=== PATIENT | female | born 1955 | race African-American/Black ===

== ENCOUNTER 2018-01-25 12:22 | Emergency (ER) | payer MEDICARE, OTHER ==
[~2018-01-25] VITALS: Ht 167.6 cm; Wt 79.4 kg
[2018-01-25 12:25] VITALS: BP 119/48
--- NOTE | 2018-01-25 12:36 | Emergency Room Report ---
History of Present Illness General Chief Complaint: Pain Source: Patient Present Illness HPI 62-year-old female presents with left buttock pain radiating down her left leg that started yesterday when she sat on the toilet, she reports no falls or other trauma. She reports it hurts to bear weight, and she is having trouble eating on her house. She denies leg swelling, fevers, cough, short of breath, syncope, any other complaints. She is tried tramadol without much relief of her pain. Allergies: Coded Allergies: BACLOFEN (Unverified Allergy, Unknown, 01/25/18) Patient History Past Medical History: see triage record Last Menstrual Period: N/A Reviewed Nursing Documentation: PMH: Agreed; PSxH: Agreed Nursing Documentation-PMH Hx Hypertension: Yes Hx Pacemaker: No - RENAL FAILURE, BLOOD CLOTS History Of Psychiatric Problem: Yes - PSYCH Review of Systems All Other Systems: negative except mentioned in HPI Physical Exam Vital Signs Date Time Temp Pulse Resp B/P (MAP) Pulse Ox O2 Delivery O2 Flow Rate FiO2 01/25/18 12:17 98.3 85 16 121/72 98 Room Air 98.2 Sp02 EP Interpretation: reviewed, normal General Appearance: no apparent distress, alert, non-toxic Head: normocephalic Eyes: bilateral eye normal inspection, bilateral eye PERRL, bilateral eye EOMI ENT: normal ENT inspection, hearing grossly normal, normal pharynx, no angioedema, normal voice, moist mucus membranes Neck: normal inspection, full range of motion, supple, supple/symm/no masses Respiratory: chest non-tender, lungs clear, normal breath sounds, chest symmetrical, palpation of chest normal Cardiovascular #1: normal peripheral pulses, regular rate, rhythm Cardiovascular #2: 2+ radial (R), 2+ radial (L), 2+ dorsalis pedis (R), 2+ dorsalis pedis (L) Gastrointestinal: normal inspection, non tender, soft, no mass, no guarding, no rebound Rectal: deferred Genitourinary: normal inspection, no CVA tenderness Musculoskeletal: back normal, gait/station normal, non-tender, no calf tenderness, decreased range of motion - L hip, 2/2 pain limitation, Christ's Sign negative Neurologic: alert, responsive, piccolo mechanic III-XII nml as tested, motor strength/tone normal, sensory intact, speech normal Psychiatric: judgement/insight normal, memory normal, mood/affect normal, no suicidal/homicidal ideation Skin: normal color, no rash, warm/dry, normal turgor Lymphatic: no adenopathy Medical Decision Making Diagnostic Impression: Primary Impression: Pain ER Course Patient with normal exam but reports too much pain to ambulate, with no traumatic history. Given morphine, flexeril, toradol. Still says she can't walk , despite normal xr, no history of trauma, normal DVT study, says she lives upstairs alone and can't walk. Will admit for placement to care facility/NH. Other X-Ray Diagnostic Results Other X-Ray Diagnostic Results : X-Ray ordered: L hip # of Views/Limited Vs Complete: 2 View Indication: Pain EP Interpretation: Yes Interpretation: no dislocation, no soft tissue swelling, no fractures, nonspecific bowel gas, no sbo Impression: No acute disease Electronically Signed by: Talisha Garcia MD CT/MRI/US Diagnostic Results CT/MRI/US Diagnostic Results : Imaging Test Ordered: LLE venous duplex Last Vital Signs Date Time Temp Pulse Resp B/P (MAP) Pulse Ox O2 Delivery O2 Flow Rate FiO2 01/25/18 12:25 98.2 87 19 119/48 97 Room Air 98.2 Disposition: ADMITTED INPATIENT Condition: Stable TALISHA GARCIA M.D Jan 25, 2018 12:36
[2018-01-25] MEDS ORDERED: Ketorolac 30mg Inj IV ONE (12:45)
[2018-01-25] MEDS ORDERED: Cyclobenzaprine 10mg Tab ORAL ONE (12:45)
[2018-01-25] MEDS ORDERED: Morphine Sulfate 4mg/ml Inj (IV USE ONLY) IVP ONE (12:45)
[2018-01-25 13:30] LABS: BASOPHILS % (AUTO) 0.8 % (0.0-2.0); EOSINOPHILS % (AUTO) 0.7 % (0.0-3.0); HEMOGLOBIN 13.2 G/DL (12.0-16.0); LYMPHOCYTES % (AUTO) 21.7 % (20.0-45.0); MEAN CORPUSCULAR VOLUME 85 FL (80-99); MONOCYTES % (AUTO) 9.8 % (1.0-10.0); NEUTROPHILS % (AUTO) 66.9 % (45.0-75.0); PLATELET COUNT 231 K/UL (150-450); RED CELL DISTRIBUTION WIDTH 13.3 % (11.6-14.8); WHITE BLOOD COUNT 9.8 K/UL (4.8-10.8)
[2018-01-25 13:31] LABS: APPEARANCE,URINE SLIGHTLY CLOUDY; BILIRUBIN, URINE NEGATIVE (NEGATIVE); COLOR,URINE PALE YELLOW; GLUCOSE, URINE (UA) NEGATIVE (NEGATIVE); KETONES,URINE NEGATIVE (NEGATIVE); LEUKOCYTE ESTERASE ,URINE 2+ (NEGATIVE); NITRITE,URINE POSITIVE (NEGATIVE); PH,URINE 6 (4.5-8.0); PROTEIN,URINE 1+ (NEGATIVE); UROBILINOGEN,URINE NORMAL MG/DL (0.0-1.0)
[2018-01-25 13:52] LABS: ANION GAP 9 mmol/L (5-15); BLOOD UREA NITROGEN 12 mg/dL (7-18); CALCIUM 9.6 MG/DL (8.5-10.1); CARBON DIOXIDE 28 MMOL/L (21-32); CHLORIDE 107 MMOL/L (98-107); CREATININE 0.7 MG/DL (0.55-1.30); POTASSIUM 3.3 MMOL/L (3.5-5.1); SODIUM 144 MMOL/L (136-145)
--- NOTE | 2018-01-25 14:27 | Diagnostic Imaging Report ---
Indication: Left lower extremity pain and swelling. Technique: Duplex Doppler imaging performed from the left common femoral vein to the popliteal vein. FINDINGS: Normal compressibility demonstrated from the left common femoral vein to the popliteal vein. Respiratory phasicity and good augmentation demonstrated on waveform analysis. There is no evidence of thrombosis. IMPRESSION: No evidence of deep venous thrombosis within the left lower extremity.
[2018-01-25 14:30] VITALS: BP 114/83
--- NOTE | 2018-01-25 14:34 | Diagnostic Imaging Report ---
Indications: hip pain Findings: Two views of the left hip were obtained. No acute fracture is demonstrated. Alignment of the hip is within normal limits. Soft tissues are unremarkable. Impression: Negative for acute injury. The study is limited due to portable technique
[2018-01-25] MEDS ORDERED: cefTRIAXone 1 GM in NS 55 ML IVPB ONE (15:00)
[2018-01-25 16:40] VITALS: BP 141/81
[2018-01-25 18:10] VITALS: BP 138/78
[2018-01-25 21:15] VITALS: BP 141/81
== END 2018-01-25 18:10 | disposition other institution (70) ==
LOC: EDBD 12:22 → EMR 12:57 → EDBEDREQ 12:58 → EMR 18:10
DX: M25.552 Pain in left hip (principal); M79.18 Myalgia, other site; I10 Essential (primary) hypertension
CPT/HCPCS: 36415; 73502; 80048; 81003; 85025; 87086; 87181; 93971; 96365; 96375; 99285; J0696; J1885; J2270; J2405

== ENCOUNTER 2018-03-21 09:11 | Emergency (ER) | payer MEDICARE ==
[~2018-03-21] VITALS: Ht 170.2 cm; Wt 102.1 kg
[2018-03-21 09:13] VITALS: BP 150/87
[2018-03-21] MEDS ORDERED: Morphine Sulfate 4mg/ml Inj (IV/IM USE ONLY) IVP ONE (09:30)
[2018-03-21] MEDS ORDERED: Ketorolac 30mg Inj IV ONE (09:30)
[2018-03-21] MEDS ORDERED: Methocarbamol 750mg tab ORAL ONE (09:30)
--- NOTE | 2018-03-21 09:43 | Emergency Room Report ---
History of Present Illness General Chief Complaint: Pain Source: Patient Present Illness HPI 62-year-old female presents ED for evaluation. Patient brought in by EMS complaining of back pain 2 days. Sharp, 10 out of 10, radiating down the right leg. Unable to bear weight. Denies any recent trauma or injury. History of sciatica. States she was here in January for similar pain and was subsequently admitted for pain control. States that since her discharge she had an MRI which confirmed sciatica area and is scheduled for physical therapy but has not yet received physical therapy yet. Denies bowel or bladder incontinence. No other aggravating relieving factors. Denies any other associated symptoms Allergies: Coded Allergies: BACLOFEN (Unverified Allergy, Unknown, 01/25/18) Patient History Past Medical History: HTN Past Surgical History: none Pertinent Family History: none Social History: Denies: smoking, alcohol use, drug use Now: No Immunizations: UTD Reviewed Nursing Documentation: PMH: Agreed; PSxH: Agreed Nursing Documentation-PMH Past Medical History: No History, Except For Hx Hypertension: Yes Hx Pacemaker: No - RENAL FAILURE, BLOOD CLOTS Review of Systems All Other Systems: negative except mentioned in HPI Physical Exam Vital Signs Date Time Temp Pulse Resp B/P (MAP) Pulse Ox O2 Delivery O2 Flow Rate FiO2 03/21/18 09:06 98.4 87 18 129/74 99 Room Air Sp02 EP Interpretation: reviewed, normal General Appearance: no apparent distress, alert, GCS 15, non-toxic Head: normocephalic Eyes: bilateral eye normal inspection, bilateral eye PERRL ENT: normal ENT inspection Neck: normal inspection Respiratory: normal inspection Cardiovascular #1: normal inspection Gastrointestinal: normal bowel sounds, non tender, soft, non-distended, no guarding, no rebound Rectal: deferred Genitourinary: no CVA tenderness, no vertebral tenderness Musculoskeletal: tender - paraspinal lumbar tenderness Neurologic: alert, oriented x3, responsive, motor strength/tone normal, sensory intact, speech normal Psychiatric: normal inspection Skin: normal inspection Lymphatic: normal inspection Medical Decision Making Diagnostic Impression: Primary Impression: Intractable low back pain ER Course Hospital Course 62 yo F presents with back pain radiatng down left leg Differential diagnoses include: SBO, aortic dissection, pyelonephritis, kidney stone, Clinical course 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 After initial history and physical I ordered labs, IV fluids, UA, pain medications Labs - no leukocytosis, Hb/Hct stable. electrolytes ok. Patient had MRI on last admission in January which shows significant DJD and disc bulging. I see no reason to repeat imaging at this time. Patient given pain medications but still continues to have pain and unable to walk. No neurological deficits. No incontinence. Because of insurance patient will be transferred I feel this is a highly complex case requiring extensive working including EKG/ Rhythm strip, Xray/CT/US, Blood/urine lab work, repeat exams while in ED, and administration of strong opiates/narcotics for pain control, admission to hospital or close patient follow up. Diagnosis -intractable back pain transferred in serious condition Labs Test 03/21/18 09:41 03/21/18 10:25 Sodium Level 142 MMOL/L (136-145) Potassium Level 3.7 MMOL/L (3.5-5.1) Chloride Level 104 MMOL/L (98-107) Carbon Dioxide Level 29 MMOL/L (21-32) Anion Gap 9 mmol/L (5-15) Blood Urea Nitrogen 14 mg/dL (7-18) Creatinine 0.7 MG/DL (0.55-1.30) Estimat Glomerular Filtration Rate > 60 mL/min (>60) Glucose Level 113 MG/DL (74-106) Calcium Level 9.7 MG/DL (8.5-10.1) Total Bilirubin 0.6 MG/DL (0.2-1.0) Aspartate Amino Transf (AST/SGOT) 26 U/L (15-37) Alanine Aminotransferase (ALT/SGPT) 51 U/L (12-78) Alkaline Phosphatase 123 U/L (46-116) Total Protein 8.2 G/DL (6.4-8.2) Albumin 3.7 G/DL (3.4-5.0) Globulin 4.5 g/dL Albumin/Globulin Ratio 0.8 (1.0-2.7) White Blood Count 12.1 K/UL (4.8-10.8) Red Blood Count 4.92 M/UL (4.20-5.40) Hemoglobin 13.9 G/DL (12.0-16.0) Hematocrit 40.6 % (37.0-47.0) Mean Corpuscular Volume 82 FL (80-99) Mean Corpuscular Hemoglobin 28.2 PG (27.0-31.0) Mean Corpuscular Hemoglobin Concent 34.2 G/DL (32.0-36.0) Red Cell Distribution Width 12.8 % (11.6-14.8) Platelet Count 265 K/UL (150-450) Mean Platelet Volume 6.3 FL (6.5-10.1) Neutrophils (%) (Auto) 76.6 % (45.0-75.0) Lymphocytes (%) (Auto) 13.3 % (20.0-45.0) Monocytes (%) (Auto) 9.1 % (1.0-10.0) Eosinophils (%) (Auto) 0.4 % (0.0-3.0) Basophils (%) (Auto) 0.6 % (0.0-2.0) Last Vital Signs Date Time Temp Pulse Resp B/P (MAP) Pulse Ox O2 Delivery O2 Flow Rate FiO2 03/21/18 09:13 98.4 91 18 150/87 99 Room Air Status: improved Disposition: XFER T-TRM HOSP Condition: Serious Alfredo Lewis MD Mar 21, 2018 09:43
[2018-03-21] MEDS ORDERED: Ketorolac 30mg Inj ONE (09:49)
[2018-03-21] MEDS ORDERED: GABAPENTIN300 MG ORAL (09:50)
[2018-03-21] MEDS ORDERED: COLCHICINE0.6 M1 PO (09:50)
[2018-03-21] MEDS ORDERED: CARTIA XT180 MG ORAL (09:50)
[2018-03-21] MEDS ORDERED: CYCLOBENZAPRINE10 MG ORAL (09:50)
[2018-03-21] MEDS ORDERED: DOXAZOSIN MESYLA4 MG ORAL (09:50)
[2018-03-21] MEDS ORDERED: COLACE100 MG ORAL (09:50)
[2018-03-21] MEDS ORDERED: TRAMADOL HCL50 MG ORAL (10:01)
[2018-03-21] MEDS ORDERED: LISINOPRIL20 MG ORAL (10:01)
[2018-03-21] MEDS ORDERED: HYDROCHLOROTHIA25 MG ORAL (10:01)
[2018-03-21 10:28] LABS: ANION GAP 9 mmol/L (5-15); BLOOD UREA NITROGEN 14 mg/dL (7-18); CALCIUM 9.7 MG/DL (8.5-10.1); CARBON DIOXIDE 29 MMOL/L (21-32); CHLORIDE 104 MMOL/L (98-107); CREATININE 0.7 MG/DL (0.55-1.30); POTASSIUM 3.7 MMOL/L (3.5-5.1); SODIUM 142 MMOL/L (136-145)
[2018-03-21 10:30] VITALS: BP 145/63
[2018-03-21 10:33] LABS: ALANINE AMINOTRANSFERASE 51 U/L (12-78); ALBUMIN 3.7 G/DL (3.4-5.0); ALBUMIN/GLOBULIN RATIO 0.8 (1.0-2.7); ALKALINE PHOSPHATASE 123 U/L (46-116); ASPARTATE AMINO TRANSFERASE 26 U/L (15-37); BILIRUBIN,TOTAL 0.6 MG/DL (0.2-1.0)
[2018-03-21 10:44] LABS: BASOPHILS % (AUTO) 0.6 % (0.0-2.0); EOSINOPHILS % (AUTO) 0.4 % (0.0-3.0); HEMATOCRIT 40.6 % (37.0-47.0); HEMOGLOBIN 13.9 G/DL (12.0-16.0); LYMPHOCYTES % (AUTO) 13.3 % (20.0-45.0); MEAN CORPUSCULAR VOLUME 82 FL (80-99); MONOCYTES % (AUTO) 9.1 % (1.0-10.0); NEUTROPHILS % (AUTO) 76.6 % (45.0-75.0); PLATELET COUNT 265 K/UL (150-450); RED BLOOD COUNT 4.92 M/UL (4.20-5.40); RED CELL DISTRIBUTION WIDTH 12.8 % (11.6-14.8); WHITE BLOOD COUNT 12.1 K/UL (4.8-10.8)
[2018-03-21 11:30] VITALS: BP 143/69
[2018-03-21 13:21] VITALS: BP 156/68
[2018-03-21 13:30] VITALS: BP 156/68
== END 2018-03-21 13:30 | disposition short-term general hospital (02) ==
LOC: EDBD 09:11 → EMR 09:59
DX: M54.5 Low back pain (principal); I10 Essential (primary) hypertension
CPT/HCPCS: 36415; 80053; 85025; 96374; 96375; 99283; J1885; J2270